=== PATIENT | female | born 1945 | race Caucasian/White ===

== ENCOUNTER 2024-02-09 13:55 | Emergency (ER) | payer MEDICAID, OTHER ==
[~2024-02-09] VITALS: Ht 160 cm; Wt 63.2 kg
[2024-02-09 17:31] LABS: Basophils # (auto) 0.1 10 ^3/uL (0-0.2); Basophils % (auto) 1.4 % (0.0-2.0); Eosinophils # (auto) 0.2 10 ^3/uL (0-0.8); Hematocrit 35.5 % (36.0-46.0); Hemoglobin 11.9 g/dL (12.2-16.2); Lymphocytes # (auto) 0.8 10 ^3/uL (0.4-5.4); Lymphocytes % (auto) 20.1 % (10.0-50.0); Mean Corpuscular Hemoglobin 28.7 pg (28.0-32.0); Mean Corpuscular Hgb Conc. 33.5 g/dL (32.0-36.0); Mean Corpuscular Volume 85.6 fL (80.0-100.0); Monocytes # (auto) 0.3 10 ^3/uL (0-1.3); Monocytes % (auto) 6.5 % (0.0-12.0); Neutrophils # (auto) 2.9 10 ^3/uL (1.6-8.6); Platelet Count (auto) 205 10^3/uL (140-450); Red Blood Cells 4.15 10^6/uL (4.0-5.20); Red Cell Distribution Width 19.3 % (11.8-14.3); White Blood Cell 4.2 10^3/uL (4.4-10.8)
[2024-02-09 17:44] LABS: Alanine Aminotransferase 21 U/L (7-40); Albumin 3.8 g/dL (3.2-4.8); Alkaline Phosphatase 120 U/L (46-116); Anion Gap 1 (5-15); Aspartate Aminotransferase 26 U/L (13-40); BUN/Creatinine Ratio 16.4 (10.0-20.0); Bilirubin, Total 0.3 mg/dL (0.2-1.0); Blood Urea Nitrogen 19 mg/dL (9-23); Calcium 9.7 mg/dL (8.7-10.4); Carbon Dioxide 30 mmol/L (20-30); Chloride 103 mmol/L (98-107); Glucose 103 mg/dL (74-106); Potassium 4.1 mmol/L (3.5-5.1); Sodium 134 mmol/L (136-145)
[2024-02-09 17:45] LABS: Total Protein 5.7 g/dL (5.7-8.2)
[2024-02-09 21:29] LABS: Urine Amorphous Crystal FEW /hpf (None Seen); Urine Bacteria FEW /hpf (None Seen); Urine Blood Negative /uL (Negative); Urine Clarity Turbid (Clear); Urine Color Light-Yellow (Yellow); Urine Protein, UAD Negative (Negative); Urine Specific Gravity 1.007 (1.001-1.035); Urine Urobilinogen Normal (Negative); Urine WBC 11 /hpf (0 - 5)
[2024-02-09] MEDS ORDERED: NITR-87 PO (22:59)
[2024-02-09 23:20] VITALS: BP 154/69; PULSE 80; RESP 16; O2SAT 92
[2024-02-09] MEDS: cefTRIAXone SOD 1,000 MG VL IM ONE (23:30)
== END 2024-02-09 23:30 | disposition home or self-care (01) ==
LOC: ER 13:55
DX: N39.0 Urinary tract infection, site not specified (principal); R51.9 Headache, unspecified; Z88.1 Allergy status to other antibiotic agents; Z88.6 Allergy status to analgesic agent
CPT/HCPCS: 36415; 70450; 80053; 81001; 82140; 83880; 84484; 85025; 93005; 96372; 99285; J0696

== ENCOUNTER 2024-02-15 10:38 | Inpatient (IN) | payer MEDICAID, OTHER ==
[~2024-02-15] VITALS: Ht 160 cm; Wt 68.6 kg
[~2024-02-15 10:38] MED LIST: NITR-87 PO
[2024-02-15 11:28] LABS: Basophils # (auto) 0.1 10 ^3/uL (0-0.2); Basophils % (auto) 1.1 % (0.0-2.0); Eosinophils # (auto) 0.1 10 ^3/uL (0-0.8); Eosinophils % (auto) 1.2 % (0.0-7.0); Hematocrit 30.3 % (36.0-46.0); Hemoglobin 10.4 g/dL (12.2-16.2); Lymphocytes # (auto) 0.7 10 ^3/uL (0.4-5.4); Lymphocytes % (auto) 11.2 % (10.0-50.0); Mean Corpuscular Hemoglobin 29.6 pg (28.0-32.0); Mean Corpuscular Hgb Conc. 34.4 g/dL (32.0-36.0); Monocytes # (auto) 0.6 10 ^3/uL (0-1.3); Monocytes % (auto) 9.6 % (0.0-12.0); Neutrophils # (auto) 4.5 10 ^3/uL (1.6-8.6); Neutrophils % (auto) 76.9 % (37.0-80.0); Nucleated Red Blood Cells % 0.1 %; Platelet Count (auto) 213 10^3/uL (140-450); Red Blood Cells 3.52 10^6/uL (4.0-5.20); White Blood Cell 5.8 10^3/uL (4.4-10.8)
[2024-02-15 11:55] LABS: Alanine Aminotransferase 16 U/L (7-40); Albumin 3.5 g/dL (3.2-4.8); Alkaline Phosphatase 123 U/L (46-116); Anion Gap 6 (5-15); Aspartate Aminotransferase 27 U/L (13-40); BUN/Creatinine Ratio 18.9 (10.0-20.0); Blood Urea Nitrogen 18 mg/dL (9-23); Calcium 8.6 mg/dL (8.7-10.4); Carbon Dioxide 26 mmol/L (20-30); Chloride 105 mmol/L (98-107); Glucose 114 mg/dL (74-106); Magnesium 1.7 mg/dL (1.6-2.6); Potassium 4.2 mmol/L (3.5-5.1); Sodium 137 mmol/L (136-145)
[2024-02-15 11:56] VITALS: PULSE 87; RESP 20; O2SAT 93
[2024-02-15 11:56] LABS: Bilirubin, Total 0.4 mg/dL (0.2-1.0); Total Protein 5.5 g/dL (5.7-8.2)
[2024-02-15 12:41] LABS: Urine Bacteria FEW /hpf (None Seen); Urine Blood 2+ /uL (Negative); Urine Clarity Turbid (Clear); Urine Color Light-Yellow (Yellow); Urine Mucus FEW (None Seen); Urine Protein, UAD TRACE (Negative); Urine Specific Gravity 1.013 (1.001-1.035); Urine Urobilinogen Normal (Negative); Urine WBC 29 /hpf (0 - 5); Urine pH 5.5 (5.0-9.0)
[2024-02-15] MEDS: FUROSEMIDE 100 MG/10ML VIAL IV ONE (12:53)
[2024-02-15] MEDS: PIPERACILLIN-TAZOB 3.375GM 100 ML IV ONE (12:53)
[2024-02-15 13:08] LABS: COVID19 ANTIGEN SOFIA FIA NEGATIVE (NEGATIVE)
[2024-02-15] MEDS ORDERED: hydrALAZINE HCL 20 MG/ML VL IV PRN (13:15)
[2024-02-15] MEDS ORDERED: ONDANSETRON HCL 4 MG/2 ML VIAL IV PRN (13:15)
[2024-02-15] MEDS: ASPirin 325 MG TAB PO ONE (13:17)
[2024-02-15] MEDS: SODIUM CHLOR 0.9% PF (SALINE LOCK) 10ML VIAL/SYR IV SCH (14:18)
[2024-02-15] MEDS ORDERED: NITROGLYCERIN 0.4 MG SL TAB SL PRN (14:30)
[2024-02-15] MEDS: DOXYCYCLINE 100MG/250ML 250 ML IV SCH (14:54)
[2024-02-15 19:25] VITALS: PULSE 76; RESP 20; O2SAT 92
[2024-02-15] MEDS: APIXABAN 2.5 MG TAB PO SCH (22:00)
[2024-02-15] MEDS: CARVEDILOL 12.5 MG TAB PO SCH (22:00)
[2024-02-16] VITALS (12 sets, daily range): BP systolic 123–149; BP diastolic 35–68; PULSE 60–78; RESP 16–20; TEMP 97.5–99.1; O2SAT 90–98
[2024-02-16] MEDS: ACETAMINOPHEN 325 MG TAB PO PRN (02:15)
[2024-02-16] MEDS: LEVOTHYROXINE SODIUM 25 MCG TAB PO SCH (06:03)
[2024-02-16 07:52] LABS: Basophils # (auto) 0.1 10 ^3/uL (0-0.2); Basophils % (auto) 1.1 % (0.0-2.0); Eosinophils # (auto) 0.3 10 ^3/uL (0-0.8); Eosinophils % (auto) 4.6 % (0.0-7.0); Hematocrit 34.6 % (36.0-46.0); Hemoglobin 11.6 g/dL (12.2-16.2); Lymphocytes # (auto) 1.2 10 ^3/uL (0.4-5.4); Lymphocytes % (auto) 16.6 % (10.0-50.0); Mean Corpuscular Hemoglobin 29.1 pg (28.0-32.0); Mean Corpuscular Hgb Conc. 33.5 g/dL (32.0-36.0); Mean Corpuscular Volume 86.9 fL (80.0-100.0); Monocytes # (auto) 0.6 10 ^3/uL (0-1.3); Monocytes % (auto) 8.3 % (0.0-12.0); Neutrophils # (auto) 4.9 10 ^3/uL (1.6-8.6); Neutrophils % (auto) 69.4 % (37.0-80.0); Nucleated Red Blood Cells % 0.1 %; Platelet Count (auto) 248 10^3/uL (140-450); Red Blood Cells 3.98 10^6/uL (4.0-5.20); Red Cell Distribution Width 19.9 % (11.8-14.3); White Blood Cell 7.1 10^3/uL (4.4-10.8)
[2024-02-16 08:23] LABS: Alanine Aminotransferase 14 U/L (7-40); Alkaline Phosphatase 120 U/L (46-116); Anion Gap 8 (5-15); BUN/Creatinine Ratio 14.9 (10.0-20.0); Blood Urea Nitrogen 22 mg/dL (9-23); Calcium 8.3 mg/dL (8.7-10.4); Carbon Dioxide 28 mmol/L (20-30); Chloride 102 mmol/L (98-107); Glucose 65 mg/dL (74-106); LDL Cholesterol 98 mg/dL (< 100); Potassium 3.8 mmol/L (3.5-5.1); Sodium 138 mmol/L (136-145); Triglycerides 85 mg/dL (< 150)
[2024-02-16 08:24] LABS: Albumin 3.6 g/dL (3.2-4.8); Aspartate Aminotransferase 20 U/L (13-40); Bilirubin, Total 0.5 mg/dL (0.2-1.0); Cholesterol 175 mg/dL (< 200); HDL Cholesterol 67 mg/dL (40-59); Total Protein 5.7 g/dL (5.7-8.2)
[2024-02-16] MEDS: FUROSEMIDE 40 MG/4 ML VIAL IV SCH (10:20)
[2024-02-16] MEDS: ASPirin 81 mg TAB PO SCH (10:21)
[2024-02-16] MEDS: cefTRIAXone 1GM/50ML D5W 50 ML IV SCH (10:21)
[2024-02-16] MEDS ORDERED: ROPI1TAB78 PO (11:46)
[2024-02-16] MEDS ORDERED: FLUO-125 PO ×2 (11:46→13:53)
[2024-02-16] MEDS ORDERED: PRIM125T PO ×2 (11:46→13:53)
[2024-02-16] MEDS ORDERED: ALLO300T2 PO (11:46)
[2024-02-16] MEDS ORDERED: LEVO50TA7 PO (11:46)
[2024-02-16] MEDS ORDERED: RIOC1TAB14 PO (11:46)
[2024-02-16] MEDS ORDERED: PREG50CA PO ×2 (11:46→13:53)
[2024-02-16] MEDS ORDERED: LORA-655 PO (11:46)
[2024-02-16] MEDS ORDERED: TRAZ-228 PO ×2 (11:46→13:53)
[2024-02-16] MEDS ORDERED: SUCR1TAB PO (11:46)
[2024-02-16] MEDS ORDERED: PRED20TA2 PO (11:46)
[2024-02-16] MEDS ORDERED: BUPR-581 PO ×2 (11:46→13:53)
[2024-02-16] MEDS ORDERED: ROFL1TAB2 PO (11:46)
[2024-02-16] MEDS ORDERED: BENZ100C97 PO ×2 (11:46→13:53)
[2024-02-16] MEDS ORDERED: ONDA-155 PO (11:46)
[2024-02-16] MEDS ORDERED: ERGO1CAP23 PO (12:28)
[2024-02-16] MEDS ORDERED: ARIP10TA29 PO (13:53)
[2024-02-16] MEDS ORDERED: RIME75TA SL (13:53)
[2024-02-16] MEDS ORDERED: MONT-8 PO (13:53)
[2024-02-16] MEDS ORDERED: CEPH250C2 PO (13:53)
[2024-02-16] MEDS ORDERED: TEMA15CA2 PO (13:53)
[2024-02-16] MEDS ORDERED: LORA-1121 PO (13:53)
[2024-02-16] MEDS ORDERED: ALBUTEROL SULF 2.5 MG/0.5ML(0.5%) NEB SOLN NEB PRN (16:00)
[2024-02-16] MEDS ORDERED: IPRATROPIUM BROM 0.5 MG/2.5ML INH SOL NEB SCH (18:00)
[2024-02-16] MEDS: ALBUTEROL SULF 2.5 MG/0.5ML(0.5%) NEB SOLN NEB SCH (18:20)
[2024-02-16] MEDS: IPRATROPIUM BROM 0.5 MG/2.5ML INH SOL NEB SCH (18:20)
[2024-02-16] MEDS: MORPHINE SULFATE INJ 2 MG/ml SYRG IV PRN (21:49)
[2024-02-16] MEDS: ATORVASTATIN 20 MG TAB PO SCH (21:50)
[2024-02-17] VITALS (21 sets, daily range): BP systolic 97–139; BP diastolic 46–87; PULSE 52–79; RESP 14–20; TEMP 97.8–99.1; O2SAT 91–100
[2024-02-17 06:33] LABS: Chloride 99 mmol/L (98-107); Potassium 4.7 mmol/L (3.5-5.1)
[2024-02-17 06:34] LABS: Anion Gap 6 (5-15); Carbon Dioxide 26 mmol/L (20-30)
[2024-02-17 06:35] LABS: Calcium 7.8 mg/dL (8.7-10.4)
[2024-02-17 06:37] LABS: Basophils # (auto) 0.1 10 ^3/uL (0-0.2); Basophils % (auto) 0.9 % (0.0-2.0); Eosinophils # (auto) 0.4 10 ^3/uL (0-0.8); Eosinophils % (auto) 6.3 % (0.0-7.0); Hematocrit 32.3 % (36.0-46.0); Hemoglobin 10.7 g/dL (12.2-16.2); Lymphocytes # (auto) 0.9 10 ^3/uL (0.4-5.4); Lymphocytes % (auto) 14.1 % (10.0-50.0); Mean Corpuscular Hemoglobin 28.5 pg (28.0-32.0); Mean Corpuscular Hgb Conc. 33.2 g/dL (32.0-36.0); Mean Corpuscular Volume 85.8 fL (80.0-100.0); Monocytes # (auto) 0.5 10 ^3/uL (0-1.3); Monocytes % (auto) 8.1 % (0.0-12.0); Neutrophils # (auto) 4.4 10 ^3/uL (1.6-8.6); Neutrophils % (auto) 70.6 % (37.0-80.0); Nucleated Red Blood Cells % 0.2 %; Platelet Count (auto) 217 10^3/uL (140-450); Red Blood Cells 3.76 10^6/uL (4.0-5.20); White Blood Cell 6.2 10^3/uL (4.4-10.8)
[2024-02-17 06:40] LABS: BUN/Creatinine Ratio 22.7 (10.0-20.0); Glucose 98 mg/dL (74-106)
[2024-02-17 06:42] LABS: Blood Urea Nitrogen 39 mg/dL (9-23); Sodium 131 mmol/L (136-145)
[2024-02-17 06:48] LABS: Red Cell Distribution Width 20.1 % (11.8-14.3)
[2024-02-17] MEDS: FUROSEMIDE 40 MG/4 ML VIAL IV SCH (10:00)
[2024-02-17] MEDS: ENOXAPARIN SOD 30 MG/0.3 ML SYRINGE SC ONE (14:06)
[2024-02-17] MEDS: DOCUSATE SOD 100 MG CAP PO PRN (21:30)
[2024-02-17] MEDS: TEMAZEPAM 15 MG CAP PO ONE (23:16)
[2024-02-18] VITALS (14 sets, daily range): BP systolic 100–152; BP diastolic 57–68; PULSE 54–73; RESP 18–22; TEMP 96.6–97.7; O2SAT 88–99
[2024-02-18] MEDS: DOXYCYCLINE 100MG/250ML 250 ML IV SCH (05:26)
[2024-02-18] MEDS ORDERED: FAMOTIDINE 20 MG TAB PO ONE (05:45)
[2024-02-18 07:09] LABS: Anion Gap 4 (5-15); Carbon Dioxide 25 mmol/L (20-31); Chloride 98 mmol/L (98-107); Potassium 4.4 mmol/L (3.5-5.1); Sodium 127 mmol/L (136-145)
[2024-02-18 07:10] LABS: Calcium 7.6 mg/dL (8.7-10.4)
[2024-02-18 07:15] LABS: BUN/Creatinine Ratio 29.8 (10.0-20.0); Blood Urea Nitrogen 39 mg/dL (9-23); Glucose 94 mg/dL (74-106)
[2024-02-18] MEDS: ENOXAPARIN SOD 30 MG/0.3 ML SYRINGE SC SCH (08:53)
[2024-02-18] MEDS ORDERED: DOXY100C4 PO (12:20)
[2024-02-18] MEDS ORDERED: CEPH250C PO (12:20)
[2024-02-18] MEDS: guaiFENesin 200 MG/10 ML UD PO PRN (14:04)
[2024-02-19] MEDS ORDERED: FAMOTIDINE 20 MG TAB PO SCH (10:00)
== END 2024-02-18 17:44 | disposition home or self-care (01) | DRG 280 ==
LOC: EDBD 10:38 → ER 10:38 → TELE 14:26 → TELE-WESTW 02-16 01:06 → WEST WING 02-17 00:26
PROVIDERS: ADMIT Internal Medicine; ATTEND Internal Medicine
DX: I11.0 Hypertensive heart disease with heart failure (principal); I50.33 Acute on chronic diastolic (congestive) heart failure; I21.A1 Myocardial infarction type 2; J18.9 Pneumonia, unspecified organism; J96.21 Acute and chronic respiratory failure with hypoxia; N39.0 Urinary tract infection, site not specified; J44.0 Chronic obstructive pulmonary disease with (acute) lower respiratory infection; N17.9 Acute kidney failure, unspecified; Z20.822 Contact with and (suspected) exposure to COVID-19; F41.9 Anxiety disorder, unspecified; I27.20 Pulmonary hypertension, unspecified; I25.10 Atherosclerotic heart disease of native coronary artery without angina pectoris; E03.9 Hypothyroidism, unspecified; Z88.1 Allergy status to other antibiotic agents; Z86.718 Personal history of other venous thrombosis and embolism; Z90.710 Acquired absence of both cervix and uterus; Z99.81 Dependence on supplemental oxygen; I69.398 Other sequelae of cerebral infarction
CPT/HCPCS: 36415; 70450; 71045; 80048; 80053; 80061; 81001; 82306; 82607; 83036; 83605; 83735; 83880; 84443; 84484; 85025; 87086; 87426; 93005; 93970; 94640; 97163; G0378; J2543; J3490